=== PATIENT | male | born 1950 | race Caucasian/White ===

== ENCOUNTER 2018-11-18 03:50 | Observation (INO) ==
[2018-11-18] MEDS ORDERED: Nitroglycerin 0.4 MG TAB.SUBL SL ONE (04:00)
[2018-11-18] MEDS ORDERED: Aspirin 81 MG TAB.CHEW PO ONE (04:00)
--- NOTE | 2018-11-18 04:04 | Emergency Department Note ---
Disposition Clinical Impression: Chronic kidney disease Chest pain Qualifiers: Chest pain type: unspecified Qualified Code(s): R07.9 - Chest pain, unspecified Disposition: Admitted As Inpatient Condition: Fair Time of Disposition: 05:17 Chest Pain HPI - General Chief Complaint: ED Chest Pain Stated Complaint: chest pain, breathing problems Time Seen by Provider: 11/18/18 03:51 Source: patient Mode of arrival: wheelchair Limitations: no limitations Vital Signs Reviewed: Yes Nursing Notes Reviewed: Yes - History of Present Illness HPI Narrative: 68-year-old male with a history of hypertension, diabetes, CAD with stents in 2011 presents for evaluation of chest pain and difficulty breathing. Patient states it woke him up approximately an hour prior to ED arrival. Patient was describing anterior chest pain without radiation. Patient states he has had difficulty breathing as well. Denies any fevers or cough. Denies any radiation symptoms down his arms or his back. No nausea vomiting or diaphoresis. States that this is similar pain presentation to when he had his heart attack 2011. Denies any abdominal pain. Patient did not take any pain medication prior to ED presentation. No history of PEs. No notable aggravating or alleviating factors. Patient states his pain has somewhat subsided since ED presentation. - Related Data Home Medications Medication Instructions Recorded Confirmed Acetaminophen [Tylenol] 325 mg PO Q6HR PRN 05/12/16 11/18/18 Aspirin Enteric Coated [Aspirin EC] 81 mg PO DAILY 05/12/16 11/18/18 Atorvastatin [Lipitor] 20 mg PO HS 05/12/16 11/18/18 FluocinoNIDE 0.05% CRM [Lidex] 1 appl TP DAILY 05/12/16 11/18/18 Hydrocortisone 1% CREAM [Cortaid] 1 appl TP BID 05/12/16 11/18/18 Losartan Potassium [Cozaar] 100 mg PO DAILY 05/12/16 11/18/18 Metoprolol [Lopressor] 37.5 mg PO BID 05/12/16 11/18/18 Nitroglycerin [Nitrostat] 0.4 mg SL AD PRN 05/12/16 11/18/18 Selenium Sulfide 1 appl TP DAILY PRN 05/12/16 11/18/18 glipiZIDE [Glipizide] 20 mg PO BID 05/12/16 11/18/18 hydroCHLOROthiazide 12.5 mg PO DAILY 05/12/16 11/18/18 [Hydrochlorothiazide] Cholecalciferol (Vitamin D3) 3,000 unit PO DAILY 11/18/18 11/18/18 [Vitamin D] Gabapentin [Neurontin] 300 mg PO DAILY 11/18/18 11/18/18 Insulin ASPART [Novolog Flexpen] 10 unit SQ TIDWM 11/18/18 11/18/18 Insulin Glargine,Hum.rec.anlog 30 unit SQ DAILY 11/18/18 11/18/18 [Basaglar Kwikpen U-100] OxyCODONE/APAP 10/325 [Percocet 1 each PO Q6HR PRN 11/18/18 11/18/18 10/325 MG] Triamcinolone Acet 0.1% OINT 1 appl TP BID 11/18/18 11/18/18 [Kenalog] Previous Rx's Medication Instructions Recorded Lidocaine Patch [Lidoderm 5% patch] 1 each TP DAILY #6 adh..patch 10/06/18 Diclofenac Sodium [Voltaren] 1 appl TP QID PRN #100 gm 10/31/18 Allergies Allergy/AdvReac Type Severity Reaction Status Date / Time Vhmuehb-Whh-Tpq Reductase Allergy Anxiety Verified 10/06/18 21:03 Inhibitor [Statins] All systems ED: reviewed and negative except as stated. Constitutional: Denies: fever Cardiovascular: Reports: chest pain Respiratory: Reports: dyspnea. Denies: cough Gastrointestinal: Denies: nausea, vomiting Chest Pain PMH - Past Medical History Medical history: Reports: diabetes, hyperlipidemia, hypertension, myocardial infarction, renal disease Psychiatric history: Reports: anxiety, depression - Social History Smoking Status: Never smoker Alcohol use: Reports: none Drug use: Reports: none Physical Exam - General Limitations: no limitations General appearance: alert, in no apparent distress - Head Head exam: atraumatic, normocephalic, normal inspection - Eye Eye exam: Present: normal appearance, PERRL, EOMI - ENT ENT exam: normal exam - Neck Neck exam: Present: normal inspection - Chest Chest inspection: Present: normal inspection, symmetric chest wall rise - Respiratory Respiratory exam: Present: normal lung sounds bilaterally. Absent: respiratory distress - Cardiovascular Cardiovascular exam: Present: regular rate, normal rhythm. Absent: systolic murmur - Abdominal Exam Abdominal exam: Present: soft, Non-Tender - Extremities Exam Extremities exam: Present: normal inspection. Absent: pedal edema - Expanded Lower Extremity Exam Neurovascular/Tendon exam: Present: normal capillary refill - Back Exam Back exam: Present: normal inspection - Neurological Exam Neurological exam: Present: alert, oriented X3, CN II-XII intact - Skin Skin exam: Present: warm, dry, intact, normal color Course Course Narrative: Patient seen and examined. Patient's EKG shows no ST elevation. Patient will get continued cardiopulmonary evaluation. Disposition likely admission. - Reevaluation(s) Reevaluation #1: Patient seen and examined. Patient's resting comfortably. Patient continues to repeat that do think this could be my anxiety. Patient does have a strong history of anxiety however given his risk factors for ACS and elevated heart score cannot necessarily rule out chest pain. Agrees with admission. Time: 05:17 Vital Signs Temperature 97.8 F 11/18/18 03:55 Pulse Rate 69 11/18/18 03:55 Respiratory Rate 16 11/18/18 03:55 Blood Pressure 193/77 11/18/18 03:55 O2 Sat by Pulse Oximetry 99 11/18/18 03:55 Temperature 97.8 F 11/18/18 03:55 Pulse Rate 62 11/18/18 04:38 Respiratory Rate 14 11/18/18 04:38 Blood Pressure 181/73 11/18/18 04:38 O2 Sat by Pulse Oximetry 99 11/18/18 04:38 Oxygen Delivery Oxygen Delivery Room Air Chest Pain - MDM Narrative Medical decision making narrative: Patient seen and examined. Patient appears to be in no acute distress. Present with chest pain. Given the sudden onset of the patient's pain is single troponin was not sufficient to rule out. Does have known cardiac history. Patient also has excessive anxiety. Patient was given aspirin. The labs showed no acute abnormalities. Patient's appropriate for continued evaluation in an obs setting. Patient history and physical are not consistent with a PE or dissection. Chronic kidney injury at baseline - Lab Data Lab results reviewed: Yes I reviewed the patient's lab results. Result diagrams: 11/18/18 04:01 11/18/18 04:01 Lab Results 11/18/18 11/18/18 11/18/18 Range/Units 04:00 04:01 04:01 WBC 5.2 (4.3-11.1) K/mcL RBC 5.01 (4.19-5.50) M/mcL Hgb 14.7 (12.9-16.9) g/dL Hct 42.6 (37.5-50.1) % MCV 85.0 (83.0-100.0) fL MCH 29.3 (28.0-33.3) pg MCHC 34.5 (31.6-35.5) g/dL RDW 11.7 (11.5-14.5) % Plt Count 216 (140-400) K/mcL MPV 9.7 (9.4-12.4) fL Immature Gran % 0.0 (0-4) % Seg Neutrophils % 45.3 % Lymphocytes % 34.7 % Monocytes % 13.2 % Eosinophils % 5.7 % Basophils % 1.1 % Neutrophils # 2.4 (1.6-8.9) K/mcL Lymphocytes # 1.8 (0.6-4.6) K/mcL Monocytes # 0.7 (0.0-1.3) K/mcL Eosinophils # 0.3 (0.0-0.6) K/mcL Basophils # 0.1 (0.0-0.2) K/mcL PT 11.1 (9.4-12.1) Seconds INR 1.0 Sodium (136-145) mEq/L Potassium (3.5-5.1) mEq/L Chloride (98-107) mEq/L Carbon Dioxide (23-29) mEq/L BUN (8-23) mg/dL Creatinine (0.70-1.30) mg/dL Est GFR ( Amer) (> 60) Est GFR (Non-Af Amer) (> 60) BUN/Creatinine Ratio (6-26) Glucose (70-105) mg/dL Calculated Osmolality (280-300) Calcium (8.6-10.3) mg/dL Troponin I (< 0.04) ng/mL B-Natriuretic Peptide 33 (Less than 100) pg/mL Lipase (11-82) Units/L 11/18/18 11/18/18 Range/Units 04:01 04:02 WBC (4.3-11.1) K/mcL RBC (4.19-5.50) M/mcL Hgb (12.9-16.9) g/dL Hct (37.5-50.1) % MCV (83.0-100.0) fL MCH (28.0-33.3) pg MCHC (31.6-35.5) g/dL RDW (11.5-14.5) % Plt Count (140-400) K/mcL MPV (9.4-12.4) fL Immature Gran % (0-4) % Seg Neutrophils % % Lymphocytes % % Monocytes % % Eosinophils % % Basophils % % Neutrophils # (1.6-8.9) K/mcL Lymphocytes # (0.6-4.6) K/mcL Monocytes # (0.0-1.3) K/mcL Eosinophils # (0.0-0.6) K/mcL Basophils # (0.0-0.2) K/mcL PT (9.4-12.1) Seconds INR Sodium 139 (136-145) mEq/L Potassium 3.8 (3.5-5.1) mEq/L Chloride 103 (98-107) mEq/L Carbon Dioxide 27 (23-29) mEq/L BUN 26 H (8-23) mg/dL Creatinine 1.59 H (0.70-1.30) mg/dL Est GFR ( Amer) 53 L (> 60) Est GFR (Non-Af Amer) 44 L (> 60) BUN/Creatinine Ratio 16 (6-26) Glucose 126 H (70-105) mg/dL Calculated Osmolality 294 (280-300) Calcium 9.4 (8.6-10.3) mg/dL Troponin I < 0.03 (< 0.04) ng/mL B-Natriuretic Peptide (Less than 100) pg/mL Lipase 26 (11-82) Units/L - Radiology Data Radiology results reviewed: Yes I reviewed the patient's radiology results. Chest X-Ray 11/18/18 04:00 IMPRESSION: No acute findings. D/ / Franky Germain / Franky Gemrain Interpreting Provider: Franky Germain - EKG Data EKG attestation: Yes I reviewed and interpreted this EKG. EKG shows normal: sinus rhythm Rate: normal Rhythm: NSR Hewitt/QRS: normal Q waves: III When compared to previous EKG there are: no significant changes Interpretation: no acute changes, nonspecific ST-T wave changes Heart Score - Score History: Moderately Suspicious EKG: Non Specific repolarisation Disturbance Age: Greater than 65 Risk Factors: Equal/Greater than 3 risk factor or history of atherosclerotic disease Troponin: Less than normal limit HEART Score Total: 6 S.B.AEsther - Liz Situation: Demographics Background: Presenting Complaint Assessment: Vital Signs, Course and respsone to treatment, Patient/Family Expectation Recommendation: Barrier(s) to disposition, Recommendation based on pending studies, treatments, or consults S.B.A.RSola Report Given to: Dr. Rufus Hill Repor Time: 05:17
[2018-11-18 04:11] LABS: Eosinophils % 5.7 %; Hematocrit 42.6 % (37.5-50.1); Hemoglobin 14.7 g/dL (12.9-16.9); Lymphocytes % 34.7 %; Mean Corpuscular HGB Conc 34.5 g/dL (31.6-35.5); Mean Corpuscular Hemoglobin 29.3 pg (28.0-33.3); Mean Platelet Volume 9.7 fL (9.4-12.4); Monocytes % 13.2 %; Platelet Count 216 K/mcL (140-400); Red Blood Count 5.01 M/mcL (4.19-5.50); Red Cell Distribution Width 11.7 % (11.5-14.5); Segmented Neutrophils % 45.3 %
[2018-11-18 04:12] LABS: Basophils # 0.1 K/mcL (0.0-0.2); Basophils % 1.1 %; Eosinophils # 0.3 K/mcL (0.0-0.6); Lymphocytes # 1.8 K/mcL (0.6-4.6); Monocytes # 0.7 K/mcL (0.0-1.3); Neutrophils # 2.4 K/mcL (1.6-8.9)
[2018-11-18 04:22] LABS: Prothrombin Time 11.1 Seconds (9.4-12.1)
[2018-11-18 04:34] LABS: BUN/Creatinine Ratio 16 (6-26); Blood Urea Nitrogen 26 mg/dL (8-23); Calcium 9.4 mg/dL (8.6-10.3); Carbon Dioxide 27 mEq/L (23-29); Chloride 103 mEq/L (98-107); Glucose 126 mg/dL (70-105); Osmolality,Calculated 294 (280-300); Potassium 3.8 mEq/L (3.5-5.1); Sodium 139 mEq/L (136-145); Troponin I < 0.03 ng/mL (< 0.04); eGFR For Non-African Americans 44 (> 60)
--- NOTE | 2018-11-18 05:16 | Emergency Department Note ---
Disposition Clinical Impression: Chronic kidney disease Chest pain Qualifiers: Chest pain type: unspecified Qualified Code(s): R07.9 - Chest pain, unspecified Disposition: Admitted As Inpatient Condition: Fair General Adult HPI - General Chief complaint: ED Chest Pain Stated complaint: chest pain, breathing problems Time Seen by Provider: 11/18/18 03:51 Source: patient Mode of arrival: wheelchair Limitations: no limitations Nursing Notes Reviewed: Yes Vital Signs Reviewed: Yes - History of Present Illness Pain Scale: 0 - Related Data Home Medications Medication Instructions Recorded Confirmed Acetaminophen [Tylenol] 325 mg PO Q6HR PRN 05/12/16 11/18/18 Aspirin Enteric Coated [Aspirin EC] 81 mg PO DAILY 05/12/16 11/18/18 Atorvastatin [Lipitor] 20 mg PO HS 05/12/16 11/18/18 FluocinoNIDE 0.05% CRM [Lidex] 1 appl TP DAILY 05/12/16 11/18/18 Hydrocortisone 1% CREAM [Cortaid] 1 appl TP BID 05/12/16 11/18/18 Losartan Potassium [Cozaar] 100 mg PO DAILY 05/12/16 11/18/18 Metoprolol [Lopressor] 37.5 mg PO BID 05/12/16 11/18/18 Nitroglycerin [Nitrostat] 0.4 mg SL AD PRN 05/12/16 11/18/18 Selenium Sulfide 1 appl TP DAILY PRN 05/12/16 11/18/18 glipiZIDE [Glipizide] 20 mg PO BID 05/12/16 11/18/18 hydroCHLOROthiazide 12.5 mg PO DAILY 05/12/16 11/18/18 [Hydrochlorothiazide] Cholecalciferol (Vitamin D3) 3,000 unit PO DAILY 11/18/18 11/18/18 [Vitamin D] Gabapentin [Neurontin] 300 mg PO DAILY 11/18/18 11/18/18 Insulin ASPART [Novolog Flexpen] 10 unit SQ TIDWM 11/18/18 11/18/18 Insulin Glargine,Hum.rec.anlog 30 unit SQ DAILY 11/18/18 11/18/18 [Basaglar Kwikpen U-100] OxyCODONE/APAP 10/325 [Percocet 1 each PO Q6HR PRN 11/18/18 11/18/18 10/325 MG] Triamcinolone Acet 0.1% OINT 1 appl TP BID 11/18/18 11/18/18 [Kenalog] Previous Rx's Medication Instructions Recorded Lidocaine Patch [Lidoderm 5% patch] 1 each TP DAILY #6 adh..patch 10/06/18 Diclofenac Sodium [Voltaren] 1 appl TP QID PRN #100 gm 10/31/18 Allergies Allergy/AdvReac Type Severity Reaction Status Date / Time Hncbzkx-Xea-Xnu Reductase Allergy Anxiety Verified 10/06/18 21:03 Inhibitor [Statins] Constitutional: Denies: fever Cardiovascular: Reports: chest pain Respiratory: Reports: dyspnea. Denies: cough Gastrointestinal: Denies: nausea, vomiting Past Medical History - Past Medical History Medical history: Reports: diabetes, hyperlipidemia, hypertension, myocardial infarction, renal disease Psychiatric history: Reports: anxiety, depression - Social History Smoking Status: Never smoker Smokeless Tobacco Status: No Alcohol use: Reports: none Drug use: Reports: none Physical Exam - General Limitations: no limitations General appearance: alert, in no apparent distress Course Vital Signs Temperature 97.8 F 11/18/18 03:55 Pulse Rate 69 11/18/18 03:55 Respiratory Rate 16 11/18/18 03:55 Blood Pressure 193/77 11/18/18 03:55 O2 Sat by Pulse Oximetry 99 11/18/18 03:55 Temperature 97.8 F 11/18/18 06:18 Pulse Rate 65 11/18/18 06:18 Respiratory Rate 16 11/18/18 06:18 Blood Pressure 168/84 11/18/18 06:18 O2 Sat by Pulse Oximetry 99 11/18/18 06:18 Oxygen Delivery Oxygen Delivery Room Air Medical Decision Making - Medical Records Medical records reviewed: Yes I reviewed the patient's medical records. - Lab Data Lab results reviewed: Yes I reviewed the patient's lab results. Result diagrams: 11/18/18 04:01 11/18/18 04:01 Lab Results 11/18/18 11/18/18 11/18/18 Range/Units 04:00 04:01 04:01 WBC 5.2 (4.3-11.1) K/mcL RBC 5.01 (4.19-5.50) M/mcL Hgb 14.7 (12.9-16.9) g/dL Hct 42.6 (37.5-50.1) % MCV 85.0 (83.0-100.0) fL MCH 29.3 (28.0-33.3) pg MCHC 34.5 (31.6-35.5) g/dL RDW 11.7 (11.5-14.5) % Plt Count 216 (140-400) K/mcL MPV 9.7 (9.4-12.4) fL Immature Gran % 0.0 (0-4) % Seg Neutrophils % 45.3 % Lymphocytes % 34.7 % Monocytes % 13.2 % Eosinophils % 5.7 % Basophils % 1.1 % Neutrophils # 2.4 (1.6-8.9) K/mcL Lymphocytes # 1.8 (0.6-4.6) K/mcL Monocytes # 0.7 (0.0-1.3) K/mcL Eosinophils # 0.3 (0.0-0.6) K/mcL Basophils # 0.1 (0.0-0.2) K/mcL PT 11.1 (9.4-12.1) Seconds INR 1.0 Sodium (136-145) mEq/L Potassium (3.5-5.1) mEq/L Chloride (98-107) mEq/L Carbon Dioxide (23-29) mEq/L BUN (8-23) mg/dL Creatinine (0.70-1.30) mg/dL Est GFR ( Amer) (> 60) Est GFR (Non-Af Amer) (> 60) BUN/Creatinine Ratio (6-26) Glucose (70-105) mg/dL Calculated Osmolality (280-300) Calcium (8.6-10.3) mg/dL Troponin I (< 0.04) ng/mL B-Natriuretic Peptide 33 (Less than 100) pg/mL Lipase (11-82) Units/L 11/18/18 11/18/18 Range/Units 04:01 04:02 WBC (4.3-11.1) K/mcL RBC (4.19-5.50) M/mcL Hgb (12.9-16.9) g/dL Hct (37.5-50.1) % MCV (83.0-100.0) fL MCH (28.0-33.3) pg MCHC (31.6-35.5) g/dL RDW (11.5-14.5) % Plt Count (140-400) K/mcL MPV (9.4-12.4) fL Immature Gran % (0-4) % Seg Neutrophils % % Lymphocytes % % Monocytes % % Eosinophils % % Basophils % % Neutrophils # (1.6-8.9) K/mcL Lymphocytes # (0.6-4.6) K/mcL Monocytes # (0.0-1.3) K/mcL Eosinophils # (0.0-0.6) K/mcL Basophils # (0.0-0.2) K/mcL PT (9.4-12.1) Seconds INR Sodium 139 (136-145) mEq/L Potassium 3.8 (3.5-5.1) mEq/L Chloride 103 (98-107) mEq/L Carbon Dioxide 27 (23-29) mEq/L BUN 26 H (8-23) mg/dL Creatinine 1.59 H (0.70-1.30) mg/dL Est GFR ( Amer) 53 L (> 60) Est GFR (Non-Af Amer) 44 L (> 60) BUN/Creatinine Ratio 16 (6-26) Glucose 126 H (70-105) mg/dL Calculated Osmolality 294 (280-300) Calcium 9.4 (8.6-10.3) mg/dL Troponin I < 0.03 (< 0.04) ng/mL B-Natriuretic Peptide (Less than 100) pg/mL Lipase 26 (11-82) Units/L - Radiology Data Radiology results reviewed: Yes I reviewed the patient's radiology results. Chest X-Ray 11/18/18 04:00 IMPRESSION: No acute findings. D/ / Franky Germain / Franky Germain Interpreting Provider: Franky Germain - EKG Data EKG #1 EKG attestation: Yes I reviewed and interpreted this EKG. EKG results narrative: EKG shows a normal sinus rhythm with ventricular rate is 71. No acute ST segment elevation or depression. No arrhythmia or ectopy. Attestation Statement - Attestation Attestation: I, Haile Duarte MD, personally evaluated this patient and discussed their management with the resident physician. I reviewed the resident's note and agree with the documented findings, medical decision making, and plan of care. 68-year-old male presents to the emergency department with a complaint of awakening from sleep tonight with difficulty breathing and lower substernal chest discomfort. Patient states he has been having these episodes intermittently for the past week or more and they seem to be getting worse. He feels that his panic attacks. He states he was on Ativan for 13 at his ears and his doctors at the [facility] discontinued his At[facility]. They have tried him on multiple other medications which did not seem to be helping. He does have a prior card iac history and has 3 coronary artery stents. On examination patient is a well-developed well-nourished male in no acute distress. He is alert and oriented 3. There is no cyanosis or diaphoresis. He is somewhat anxious. Chest is nontender to palpation. Breath sounds are clear and equal bilaterally. Heart regular rate and rhythm. Abdomen soft and nontender with normal bowel sounds. Labs reviewed. Troponin normal. Chest x-ray negative. No acute changes on EKG. The hospitalist, Dr. Hooper, was consulted and accepted admission of the patient.
[2018-11-18] MEDS ORDERED: Naloxone 0.4 MG/ML INJ IVP PRN (09:25)
[2018-11-18] MEDS ORDERED: Acetaminophen 325 MG TABLET PO PRN (09:28)
[2018-11-18] MEDS ORDERED: hydroCHLOROthiazide 25 MG TABLET PO SCH (09:30)
[2018-11-18] MEDS ORDERED: Aspirin Enteric Coated 81 MG Tablet PO SCH (09:30)
[2018-11-18] MEDS ORDERED: Gabapentin 300 MG CAPSULE PO SCH (09:30)
[2018-11-18] MEDS ORDERED: *HR* OxyCODONE/APAP 10/325 TABLET PO PRN (10:42)
[2018-11-18] MEDS ORDERED: *HR* Dextrose 50 % in Water (Syg) 50 ML SYRINGE IVP PRN (10:43)
[2018-11-18] MEDS ORDERED: D5% in Water 1,000 ML IVC PRN (10:43)
[2018-11-18] MEDS ORDERED: Dextrose Gel 15 GM/37.5 ML TUBE PO PRN ×2 (10:43)
[2018-11-18 11:02] VITALS: BP 174/97
[2018-11-18] MEDS ORDERED: Insulin LISPRO 300 UNITS/3 ML VIAL SQ SCH ×2 (11:30→21:00)
--- NOTE | 2018-11-18 11:31 | Discharge Summary ---
- NOTES TO OUTPATIENT PROVIDER Notes to Outpatient Provider: THE PATIENT HAS SCHEDULED ECHOCARDIOGRAM - ON 11/22/18. PLEASE, FOLLOW THE RESULTS.. Orders not resulted at time of discharge: Pending orders 11/18/18 04:00 ECG 12 lead ECG [ECG] Stat Date of Encounter: 11/18/18 Time of Encounter: 11:30 - Discharge Diagnosis (1) Chest pain Priority: Primary Status: Acute Qualifiers: Chest pain type: other chest pain Qualified Code(s): R07.89 - Other chest pain; R07.8 - Other chest pain (2) CAD (coronary artery disease) Priority: Primary Status: Chronic Qualifiers: Coronary Disease-Associated Artery/Lesion type: [place] artery [place] vs. transplanted heart: [place] heart Associated angina: with unspecified angina Qualified Code(s): I25.119 - Atherosclerotic heart disease of [place] coronary artery with unspecified angina pectoris (3) Type 2 diabetes mellitus Priority: Secondary Status: Chronic Qualifiers: Diabetes mellitus parts counterman insulin use: with group home use Diabetes mellitus complication status: without complication Qualified Code(s): E11.9 - Type 2 diabetes mellitus without complications; Z79.4 - detention (current) use of insulin (4) Hypertensive renal disease with renal failure Priority: Secondary Status: Chronic Hospital course: Mr. Smith is a 68 year old male Discharge discussed with: patient, nurse - Time Spent with Patient Total time spent providing and/or coordinating discharge services: Less than 30 minutes - Discharge Medications Home Medications: Acetaminophen [Tylenol] 325 mg PO Q6HR PRN 05/12/16 [History] Aspirin Enteric Coated [Aspirin EC] 81 mg PO DAILY 05/12/16 [History] Atorvastatin [Lipitor] 20 mg PO HS 05/12/16 [History] FluocinoNIDE 0.05% CRM [Lidex] 1 appl TP DAILY 05/12/16 [History] Hydrocortisone 1% CREAM [Cortaid] 1 appl TP BID 05/12/16 [History] Losartan Potassium [Cozaar] 100 mg PO DAILY 05/12/16 [History] Metoprolol [Lopressor] 37.5 mg PO BID 05/12/16 [History] Nitroglycerin [Nitrostat] 0.4 mg SL AD PRN 05/12/16 [History] Selenium Sulfide 1 appl TP DAILY PRN 05/12/16 [History] glipiZIDE [Glipizide] 20 mg PO BID 05/12/16 [History] hydroCHLOROthiazide [Hydrochlorothiazide] 12.5 mg PO DAILY 05/12/16 [History] Lidocaine Patch [Lidoderm 5% patch] 1 each TP DAILY #6 adh..patch 10/06/18 [Rx] Diclofenac Sodium [Voltaren] 1 appl TP QID PRN #100 gm 10/31/18 [Rx] Cholecalciferol (Vitamin D3) [Vitamin D3] 3,000 unit PO DAILY 11/18/18 [History] Gabapentin [Neurontin] 300 mg PO DAILY 11/18/18 [History] Insulin ASPART [Novolog Flexpen] 10 unit SQ TIDWM 11/18/18 [History] Insulin Glargine,Hum.rec.anlog [Basaglar Kwikpen U-100] 30 unit SQ DAILY 11/18/18 [History] OxyCODONE/APAP 10/325 [Percocet 10/325 MG] 1 each PO Q6HR PRN 11/18/18 [History] Triamcinolone Acet 0.1% OINT [Kenalog] 1 appl TP BID 11/18/18 [History] Allergies/Adverse Reactions: Allergy/AdvReac Type Severity Reaction Status Date / Time Wpcgyot-Ceu-Yhn Reductase Allergy Anxiety Verified 10/06/18 21:03 Inhibitor [Statins] Date of admission: 11/18/18 05:31 Primary care physician: PCP [place] Discharging clinician: Blair Staley Anticipated date of discharge: 11/18/18 - Constitutional Vitals: Temp Pulse Resp BP Pulse Ox 96.9 F L 63 16 174/97 99 11/18/18 10:58 11/18/18 10:58 11/18/18 10:58 11/18/18 10:58 11/18/18 10:58 General appearance: Present: A&O X 3, no acute distress, answers questions appropriately Exam: xx - Patient Status Disposition: Home, Self-Care Condition: Good Functional capacity at discharge: independent ambulation - Discharge Instructions Instructions: Chest Pain (DC) Follow Up With: Samm Saha MD [Partnered Physician] - [place],PCP [Primary Care Provider] - - Diet and Activity Activity: resume usual activities as tolerated Diet: low fat, low cholesterol - [facility] Deep Vein Thrombosis/Pulmonary Embolism Present on Admission: No
[2018-11-18] MEDS ORDERED: Insulin DETEMIR 100 UNIT/ML X5UNITS SQ SCH (21:00)
--- NOTE | 2018-11-19 09:38 | Internal Med History&Physical ---
Date of Encounter: 11/18/18 Time of Encounter: 11:00 Internal Medicine - H&P: HPI Chief complaint: CHEST PAIN Admitted From: Home Plans for Post Hospital Care: Home History of present illness: The patient is an 68-year-old male. He has underlying coronary artery disease; had myocardial infarction in the past. The patient is admitted with lower substernal chest pain happening in the last hour preceding this admission; subs ided some time in the emergency department. The pain was not associated with any other symptoms like dyspnea, diaphoresis or nausea/vomiting. He has had some vague (mild) difficulty breathing, when going to sleepin the last few weeks. He does not have any in the middle of the night or in the morning. He has noticed any worsening of exercise tolerance/chest pain with exertion recently. PAST MEDICAL HX: Coronary artery disease; had the myocardial infarction in the past. Type 2 diabetes mellitus (insulin-dependent), hypertensive renal disease with CKD stage III and hyperlipidemia. He has been treated for chronic low back pain with radiation to his left leg. PAST FAMILY HX: See below.. PAST SOCIAL HX: See below.. REVIEW OF SYSTEMS: All 14 organ systems were reviewed by me with the patient. Positive and pertinent negative findings are listed above. The rest of organ systems is neg ative. PHYSICAL EXAM: Skin: Free of rash and discoloration. Eyes: Sclera is white. There is no discharge from eyes. ENMT: Oral/pharyngeal mucosa is normal in appearance. There is no discharge from nose or ears. Respiratory: Normal breath sounds with no crackles and wheezes bilaterally. CV: Heart is regular with no gallop or murmur. GI: Abdomen is flat and soft with no palpable mass or visceromegaly. : There is no tenderness in patient's flanks bilaterally. Neuro exam: He has good strength in upper and lower extremities. He has normal eye movements. Straight leg raise is only 45 on the left side. Psychiatric: He has normal affect. His thought process is appropriate to the situation. ADDITIONAL DATA: EKG shows normal findings. Troponin is normal. CBC is normal. Electrolytes are normal. Creatinine is 1.59 (baseline). His random glucose is 126. Calcium is 9.4. A/P: Chest pain. Very likely noncardiac. His last stress test was done in May 2016. It showed gated LVEF of 64%. There was fixed perfusion defect in the basal inferior wall. Otherwise, there was no evidence of reversible myocardial ischemia. His coronary artery disease seems to be stable/controlled. To continue Lopressor, Lipitor and aspirin. Type 2 diabetes mellitus. Seems to be under control. To continue diabetic diet and insulin Levemir/when necessary insulin Humalog. Hypertensive renal disease with CKD stage III. Stable/controlled. We will keep him on Lopressor, losartan and HCTZ. Chronic low back pain with left-sided sciatica. Continue Voltaren and lidocaine patch. His other medical problems are listed above. There is stable/under control. Addendum: It was around noon-time, when the patient requested discharging him home. He says: All my problems are gone and feels . He does not want to have another stress test. He has an echocardiogram scheduled for November 22 of this year. Past Med Surg Social Fam HX - Past Medical History Medical history: diabetes, hyperlipidemia, hypertension, myocardial infarction, renal disease Additional medical history: stage III renal failure Psychiatric history: anxiety, depression - Past Surgical History Additional surgical history: cardiac stents x 3 - Social History Smoking Status: Never smoker Smokeless Tobacco Status: No Alcohol use: none Drug use: none - Family History Mother Hx Family Cancer: Yes (COLON) Internal Medicine - H&P: Meds Acetaminophen [Tylenol] 325 mg PO Q6HR PRN 05/12/16 [History] Aspirin Enteric Coated [Aspirin EC] 81 mg PO DAILY 05/12/16 [History] Atorvastatin [Lipitor] 20 mg PO HS 05/12/16 [History] FluocinoNIDE 0.05% CRM [Lidex] 1 appl TP DAILY 05/12/16 [History] Hydrocortisone 1% CREAM [Cortaid] 1 appl TP BID 05/12/16 [History] Losartan Potassium [Cozaar] 100 mg PO DAILY 05/12/16 [History] Metoprolol [Lopressor] 37.5 mg PO BID 05/12/16 [History] Nitroglycerin [Nitrostat] 0.4 mg SL AD PRN 05/12/16 [History] Selenium Sulfide 1 appl TP DAILY PRN 05/12/16 [History] glipiZIDE [Glipizide] 20 mg PO BID 05/12/16 [History] hydroCHLOROthiazide [Hydrochlorothiazide] 12.5 mg PO DAILY 06/30/16 [History] Lidocaine Patch [Lidoderm 5% patch] 1 each TP DAILY #6 adh..patch 10/06/18 [Rx] Diclofenac Sodium [Voltaren] 1 appl TP QID PRN #100 gm 10/31/18 [Rx] Cholecalciferol (Vitamin D3) [Vitamin D3] 3,000 unit PO DAILY 11/18/18 [History] Gabapentin [Neurontin] 300 mg PO DAILY 11/18/18 [History] Insulin ASPART [Novolog Flexpen] 10 unit SQ TIDWM 11/18/18 [History] Insulin Glargine,Hum.rec.anlog [Basaglar Kwikpen U-100] 30 unit SQ DAILY 11/18/18 [History] OxyCODONE/APAP 10/325 [Percocet 10/325 MG] 1 each PO Q6HR PRN 11/18/18 [History] Triamcinolone Acet 0.1% OINT [Kenalog] 1 appl TP BID 11/18/18 [History] Allergy/AdvReac Type Severity Reaction Status Date / Time [id number]-[id number]-Thx Reductase Allergy Anxiety Verified 10/06/18 21:03 Inhibitor [Statins] - Constitutional Vitals: Temp Pulse Resp BP Pulse Ox 96.9 F L 63 16 174/97 99 11/18/18 10:58 11/18/18 10:58 11/18/18 10:58 11/18/18 10:58 11/18/18 10:58 General appearance: Present: A&O X 3, no acute distress, answers questions appropriately Exam: xx Internal Med - H&P Results - Labs CBC & Chem 7: 11/18/18 04:01 11/18/18 04:01 - Impressions ITS Impressions Chest X-Ray 11/18/18 04:00 IMPRESSION: No acute findings. D/ / Franky Germain / Franky Germain Interpreting Provider: Franky Germain - Assessment and plan (1) Chest pain Status: Acute Qualifiers: Chest pain type: other chest pain Qualified Code(s): R07.9 - Chest pain, unspecified (2) CAD (coronary artery disease) Status: Chronic Qualifiers: Coronary Disease-Associated Artery/Lesion type: [place] artery [place] vs. transplanted heart: [place] heart Qualified Code(s): I25.10 - Atherosclerotic heart disease of [place] coronary artery without angina pectoris (3) Type 2 diabetes mellitus Status: Chronic Qualifiers: Diabetes mellitus terminologist insulin use: with residential use Diabetes m ellitus complication status: without complication Qualified Code(s): E11.9 - Type 2 diabetes mellitus without complications; Z79.4 - intermediate (current) use of insulin (4) Hypertensive renal disease with renal failure Status: Chronic (5) Chronic low back pain Status: Chronic Qualifiers: Back pain laterality: midline Sciatica presence: with sciatica Sciatica laterality: sciatica of left side Qualified Code(s): M54.42 - Lumbago with sciatica, left side; G89.29 - Other chronic pain - Time Spent With Patient Total time spent is greater than 50% in coordination of care (as documented) at patient's floor/unit and/or counseling patient: 25 - 35 minutes - VTE Reasons for not Prescribing Prophylaxis: Treatment not Indicated - Low risk for VTE Deep Vein Thrombosis/Pulmonary Embolism Present on Admission: No
--- NOTE | 2018-11-19 16:11 | Electrocardiograph Report ---
[address] [address] Test Date: 2018-11-18 Pat Name: Kamron Smith Department: [id number] Room: [facility] Gender: M [employer]ing [employer] Carrier: : 1950 Requested By: Crispin Macario Order Number: [id number] Reading MD: Dakota Worthington Measurements Intervals [place] Rate: 71 P: 38 [place]: 175 QRS: -36 QRSD: 106 T: 32 QT: 411 QTc: 447 Interpretive Statements Sinus rhythm Left axis deviation Abnormal inferior Q waves Electronically Signed On 11-19-2018 16:09:49 EST by Dakota Worthington
== END 2018-11-18 12:44 | disposition home or self-care (01) ==
LOC: 3NENU 03:50 → EMEROOARM 03:50 → 3NENU 06:14
PROVIDERS: ADMIT Internal Medicine; ATTEND Internal Medicine

== ENCOUNTER 2020-01-26 16:55 | Observation (INO) ==
[2020-01-26 17:30] LABS: Prothrombin Time 10.8 Seconds (9.4-12.1)
[2020-01-26 17:37] LABS: Basophils # 0.1 K/mcL (0.0-0.2); Basophils % 1.3 %; Eosinophils # 0.4 K/mcL (0.0-0.6); Eosinophils % 7.1 %; Hematocrit 39.3 % (37.5-50.1); Hemoglobin 12.9 g/dL (12.9-16.9); Immature Granulocytes % 0.2 % (0-4); Lymphocytes # 1.6 K/mcL (0.6-4.6); Lymphocytes % 28.7 %; Mean Corpuscular HGB Conc 32.8 g/dL (31.6-35.5); Mean Corpuscular Hemoglobin 29.3 pg (28.0-33.3); Mean Corpuscular Volume 89.1 fL (83.0-100.0); Mean Platelet Volume 9.9 fL (9.4-12.4); Monocytes # 0.7 K/mcL (0.0-1.3); Monocytes % 12.1 %; Neutrophils # 2.8 K/mcL (1.6-8.9); Platelet Count 216 K/mcL (140-400); Red Blood Count 4.41 M/mcL (4.19-5.50); Red Cell Distribution Width 12.4 % (11.5-14.5); Segmented Neutrophils % 50.6 %; White Blood Count 5.5 K/mcL (4.3-11.1)
[2020-01-26] MEDS ORDERED: Aspirin 325 MG TABLET PO ONE (17:38)
[2020-01-26 17:47] LABS: BUN/Creatinine Ratio 13 (6-26); Blood Urea Nitrogen 19 mg/dL (8-23); Calcium 9.1 mg/dL (8.6-10.3); Carbon Dioxide 28 mEq/L (23-29); Chloride 105 mEq/L (98-107); Glucose 129 mg/dL (70-105); Osmolality,Calculated 294 (280-300); Potassium 3.7 mEq/L (3.5-5.1); Sodium 140 mEq/L (136-145); Troponin I < 0.03 ng/mL (< 0.04); eGFR For African Americans 56 (> 60); eGFR For Non-African Americans 46 (> 60)
[2020-01-26] MEDS ORDERED: Naloxone 0.4 MG/ML INJ IVP PRN (19:52)
[2020-01-26] MEDS ORDERED: Dextrose Gel 15 GM/37.5 ML TUBE PO PRN ×2 (20:27)
[2020-01-26] MEDS ORDERED: D5% in Water 1,000 ML IVC PRN (20:27)
[2020-01-26] MEDS ORDERED: *HR* Dextrose 50 % in Water (Syg) 50 ML SYRINGE IVP PRN (20:27)
[2020-01-26] MEDS ORDERED: Insulin LISPRO 300 UNITS/3 ML VIAL SQ SCH (21:00)
[2020-01-26] MEDS: *HR* Heparin 5,000 UNIT/ML VIAL SQ SCH (21:59)
[2020-01-26 22:03] LABS: Estimated Average Glucose 186 mg/dl
[2020-01-26] MEDS ORDERED: *HR* OxyCODONE Immed Rel 5 MG TABLET PO ONE (22:19)
[2020-01-26] MEDS: Acetaminophen 325 MG TABLET PO PRN (23:57)
[2020-01-27 02:22] LABS: INR 1.1
[2020-01-27] MEDS: ALPRAZolam 0.5 MG TABLET PO PRN ×2 (02:33→09:12)
[2020-01-27 02:39] LABS: Basophils # 0.1 K/mcL (0.0-0.2); Basophils % 0.7 %; Eosinophils # 0.2 K/mcL (0.0-0.6); Eosinophils % 3.1 %; Hematocrit 35.2 % (37.5-50.1); Hemoglobin 11.8 g/dL (12.9-16.9); Immature Granulocytes % 0.3 % (0-4); Lymphocytes # 1.4 K/mcL (0.6-4.6); Lymphocytes % 19.6 %; Mean Corpuscular HGB Conc 33.5 g/dL (31.6-35.5); Mean Corpuscular Hemoglobin 29.5 pg (28.0-33.3); Mean Platelet Volume 10.4 fL (9.4-12.4); Monocytes # 0.6 K/mcL (0.0-1.3); Monocytes % 8.3 %; Neutrophils # 4.9 K/mcL (1.6-8.9); Platelet Count 203 K/mcL (140-400); Red Cell Distribution Width 12.5 % (11.5-14.5); White Blood Count 7.2 K/mcL (4.3-11.1)
[2020-01-27 02:40] LABS: Albumin 3.6 g/dL (3.5-5.7); Albumin/Globulin Ratio 1.5 (1.1-2.2); Bilirubin,Total 0.4 mg/dL (0.3-1.0); Calcium 8.4 mg/dL (8.6-10.3); Chol/HDL Ratio 3.6 (0-4.9); Globulin 2.4 g/dL (2.4-3.5); Magnesium 1.8 mg/dL (1.6-2.6); Phosphorous 3.3 mg/dL (2.7-4.5); Potassium 3.9 mEq/L (3.5-5.1)
[2020-01-27] MEDS ORDERED: FluocinoNIDE 0.05% CRM 15 GM TUBE TP PRN (03:39)
[2020-01-27] MEDS ORDERED: (Diclofenac Sodium [Voltaren] 1 APPL) TP PRN (03:39)
[2020-01-27] MEDS ORDERED: hydrOXYzine pamoate 25 MG CAPSULE PO PRN (03:39)
[2020-01-27] MEDS ORDERED: Acetaminophen 325 MG TABLET PO PRN (03:39)
[2020-01-27] MEDS ORDERED: SELENIUM SULFIDE APPL TP PRN (03:39)
[2020-01-27] MEDS ORDERED: *HR* OxyCODONE/APAP 10/325 TABLET PO PRN (03:39)
[2020-01-27] MEDS: *HR* Heparin 5,000 UNIT/ML VIAL SQ SCH (06:16)
[2020-01-27] MEDS: Acetaminophen 325 MG TABLET PO PRN (06:41)
[2020-01-27] MEDS: Insulin LISPRO 300 UNITS/3 ML VIAL SQ SCH ×2 (08:05→11:55)
[2020-01-27] MEDS ORDERED: Cholecalciferol (D-3) 1,000 UNIT (25MCG) TABLET PO SCH ×2 (09:00→11:45)
[2020-01-27] MEDS ORDERED: hydroCHLOROthiazide 25 MG TABLET PO SCH (09:00)
[2020-01-27] MEDS ORDERED: Insulin DETEMIR 100 UNIT/ML X5UNITS SQ SCH (09:00)
[2020-01-27] MEDS ORDERED: amLODIPine 5 MG TABLET PO SCH (09:00)
[2020-01-27] MEDS ORDERED: Aspirin Enteric Coated 81 MG Tablet PO SCH (09:00)
[2020-01-27 14:37] VITALS: BP 154/66
[2020-01-28] MEDS ORDERED: Cholecalciferol (D-3) 1,000 UNIT (25MCG) TABLET PO SCH (18:00)
[2020-01-28] MEDS ORDERED: amLODIPine 5 MG TABLET PO SCH (18:00)
== END 2020-01-27 14:48 | disposition home or self-care (01) ==
LOC: EMEROOARM 16:55 → 3BNU 16:55
PROVIDERS: ADMIT Family Medicine; ATTEND Family Medicine